=== PATIENT | male | born 1940 | race Caucasian/White ===

== ENCOUNTER 2021-10-25 15:28 | Inpatient (IN) ==
[2021-10-25] MEDS ORDERED: Lactated Ringers 1000 ml BAG 1,000 ML IV ONE (16:36)
[2021-10-25] MEDS ORDERED: NS 0.9% 1000 ml BAG 500 ML IV ONE (16:37)
[2021-10-25 17:34] LABS: Troponin I 0.01 ng/mL (<0.03)
[2021-10-25 17:36] LABS: Albumin 3.7 g/dL (3.2-5.2); Albumin/Globulin Ratio 1.4 (1-3); Calcium 9.4 mg/dL (8.6-10.3); Globulin 2.7 g/dL (2-4); Magnesium 2.2 mg/dL (1.9-2.7); Potassium 4.6 mmol/L (3.5-5.0); Total Bilirubin 0.6 mg/dL (0.2-1.0); Total Protein 6.4 g/dL (6.4-8.9); eGFR CKD-EPI 37.8 (>60)
[2021-10-25 17:44] LABS: ABS Eosinophils 0.1 10^3/ul (0-0.6); ABS Lymphocytes 1.2 10^3/ul (1.0-4.8); ABS Monocytes 0.4 10^3/ul (0-0.8); ABS Neutrophils 4.7 10^3/ul (1.5-7.7); Eosinophil % 1.2 %; Hematocrit 33 % (42-52); Hemoglobin 11.3 g/dL (14.0-18.0); Lymphocyte % 18.2 %; Mean Corpuscular HGB Conc 34 g/dL (31-36); Mean Corpuscular Hemoglobin 32 pg (27-31); Mean Corpuscular Volume 95 fL (80-94); Mean Platelet Volume 9.6 fL (7.4-10.4); Nucleated Red Blood Cells % 0.1; Platelet Count 99 10^3/uL (150-450); Red Blood Count 3.49 10^6 /uL (4.18-5.48); Red Cell Distribution Width 16 % (10-15); White Blood Count 6.3 10^3/uL (3.5-10.8)
[2021-10-25 18:24] LABS: Large Platelets Present
[2021-10-25 18:39] LABS: TSH Ultra Thyroid Stim Horm 22.56 mcIU/mL (0.34-5.60)
[2021-10-25 18:41] LABS: Free T4 0.45 ng/dL (0.61-1.12)
[2021-10-25 18:55] LABS: C Reactive Protein 49.64 mg/L (<8.01)
[2021-10-25 19:19] LABS: Urine Appearance Cloudy; Urine Bilirubin Negative (Negative); Urine Blood 1+ (Negative); Urine Color Yellow; Urine Glucose Negative (Negative); Urine Ketones Negative (Negative); Urine Nitrite Negative (Negative); Urine Protein Negative (Negative); Urine Specific Gravity 1.011 (1.002-1.030); Urine Urobilinogen Negative (Negative)
[2021-10-25 19:22] LABS: Urine Bacteria Absent (Absent); Urine Red Blood Cell 1+(3-5/hpf) (Absent); Urine Squamous Epithelial Cell Present (Absent); Urine White Blood Cell 3+(>20/hpf) (Absent)
[2021-10-25] MEDS ORDERED: cefTRIAXone 1 gm/50 mL NS BAG 1 GM/50 ML BAG IVPB SCH (20:00)
[2021-10-25] MEDS: Enoxaparin 40 MG/0.4 ML SYR SUBCUT SCH (20:14)
[2021-10-25] MEDS ORDERED: Levothyroxine 100 MCG/5 ML VIAL IV ONE (22:00)
[2021-10-25] MEDS ORDERED: ROPINIROLE HYDROCHLORIDE 3 MG PO SCH (22:45)
[2021-10-26] MEDS: Nystatin TOP POWDER 15 GM BTL TOPICAL SCH ×3 (01:14→19:42)
[2021-10-26] MEDS ORDERED: NS 0.9% 500 ml BAG 500 ML IV ONE (06:48)
[2021-10-26] MEDS ORDERED: Lactated Ringers 500 ml BAG 500 ML IV ONE ×2 (09:30→11:37)
[2021-10-26] MEDS ORDERED: Saline NASAL SPRAY 0.65% BTL BOTH NARES PRN (16:56)
[2021-10-26] MEDS: cefTRIAXone 1 gm/50 mL NS BAG 1 GM/50 ML BAG IVPB SCH (19:42)
[2021-10-26] MEDS: Enoxaparin 40 MG/0.4 ML SYR SUBCUT SCH (19:42)
[2021-10-27 06:05] LABS: ABS Eosinophils 0.1 10^3/ul (0-0.6); ABS Lymphocytes 1.3 10^3/ul (1.0-4.8); ABS Monocytes 0.4 10^3/ul (0-0.8); ABS Neutrophils 2.9 10^3/ul (1.5-7.7); Eosinophil % 2.1 %; Hematocrit 33 % (42-52); Hemoglobin 10.8 g/dL (14.0-18.0); Lymphocyte % 27.3 %; Mean Corpuscular HGB Conc 33 g/dL (31-36); Mean Corpuscular Hemoglobin 32 pg (27-31); Mean Corpuscular Volume 97 fL (80-94); Mean Platelet Volume 9.7 fL (7.4-10.4); Nucleated Red Blood Cells % 0.2; Platelet Count 87 10^3/uL (150-450); Red Blood Count 3.38 10^6 /uL (4.18-5.48); Red Cell Distribution Width 16 % (10-15); White Blood Count 4.6 10^3/uL (3.5-10.8)
[2021-10-27 06:27] LABS: Potassium 4.3 mmol/L (3.5-5.0); eGFR CKD-EPI 40.8 (>60)
[2021-10-27 08:47] LABS: C Reactive Protein 38.94 mg/L (<8.01); Magnesium 2.1 mg/dL (1.9-2.7)
[2021-10-27] MEDS: Nystatin TOP POWDER 15 GM BTL TOPICAL SCH ×2 (10:00→20:57)
[2021-10-27] MEDS ORDERED: Cosyntropin 0.25 MG VIAL IV ONE (11:57)
[2021-10-27 12:56] LABS: Ferritin 371.1 ng/mL (24-336)
[2021-10-27 13:00] LABS: Folate 5.55 ng/mL (5.90-24.80)
[2021-10-27] MEDS: Enoxaparin 40 MG/0.4 ML SYR SUBCUT SCH (20:57)
[2021-10-27] MEDS: cefTRIAXone 1 gm/50 mL NS BAG 1 GM/50 ML BAG IVPB SCH (20:57)
[2021-10-28 06:22] LABS: Hematocrit 30 % (42-52); Hemoglobin 10.6 g/dL (14.0-18.0); Mean Corpuscular HGB Conc 35 g/dL (31-36); Mean Corpuscular Hemoglobin 33 pg (27-31); Mean Corpuscular Volume 95 fL (80-94); Mean Platelet Volume 9.4 fL (7.4-10.4); Platelet Count 94 10^3/uL (150-450); Red Cell Distribution Width 16 % (10-15); White Blood Count 5.3 10^3/uL (3.5-10.8)
[2021-10-28 06:30] LABS: Magnesium 2.1 mg/dL (1.9-2.7); Potassium 3.8 mmol/L (3.5-5.0); eGFR CKD-EPI 44.3 (>60)
[2021-10-28] MEDS: Nystatin TOP POWDER 15 GM BTL TOPICAL SCH ×2 (08:42→21:02)
[2021-10-28] MEDS ORDERED: Furosemide 20 mg/2 ml IV VIAL IV SLOW PU ONE (10:30)
[2021-10-28] MEDS: Enoxaparin 40 MG/0.4 ML SYR SUBCUT SCH (21:02)
[2021-10-29 06:53] LABS: Magnesium 2.1 mg/dL (1.9-2.7); Potassium 4.1 mmol/L (3.5-5.0); eGFR CKD-EPI 47.1 (>60)
[2021-10-29] MEDS: Nystatin TOP POWDER 15 GM BTL TOPICAL SCH ×2 (09:19→20:30)
[2021-10-29] MEDS ORDERED: Furosemide 40 mg/4 ml IV VIAL IV ONE (16:58)
[2021-10-29] MEDS: Enoxaparin 40 MG/0.4 ML SYR SUBCUT SCH (20:19)
[2021-10-30 05:36] LABS: Calcium 8.7 mg/dL (8.6-10.3); Magnesium 2.1 mg/dL (1.9-2.7); Potassium 3.9 mmol/L (3.5-5.0); eGFR CKD-EPI 47.9 (>60)
[2021-10-30 08:19] LABS: HDL Cholesterol 31.9 mg/dL
[2021-10-30] MEDS: Nystatin TOP POWDER 15 GM BTL TOPICAL SCH ×2 (08:42→21:51)
[2021-10-30 08:51] LABS: Free T3 2.1 pg/mL (2.5-3.9)
[2021-10-30 09:13] LABS: % Iron Saturation 47 % (14 - 50); Total Iron Binding Capacity 251 mcg/dL (250 - 400)
[2021-10-30 10:48] LABS: Free T4 0.58 ng/dL (0.61-1.12)
[2021-10-30] MEDS: Levothyroxine 100 MCG/5 ML VIAL IV SCH (17:39)
[2021-10-30] MEDS: Enoxaparin 40 MG/0.4 ML SYR SUBCUT SCH (21:50)
[2021-10-31] MEDS ORDERED: Levothyroxine 100 MCG/5 ML VIAL IV SCH (06:00)
[2021-10-31 08:31] LABS: Calcium 8.5 mg/dL (8.6-10.3); eGFR CKD-EPI 58.2 (>60)
[2021-10-31] MEDS: Nystatin TOP POWDER 15 GM BTL TOPICAL SCH ×2 (08:36→20:16)
[2021-10-31 08:50] LABS: Free T4 0.67 ng/dL (0.61-1.12)
[2021-10-31] MEDS ORDERED: Furosemide 20 mg/2 ml IV VIAL IV ONE (08:55)
[2021-10-31] MEDS: Levothyroxine 100 MCG/5 ML VIAL IV SCH (10:34)
[2021-10-31] MEDS ORDERED: COVID-19 VACCINE, MRNA(MODERNA) BOOSTER/PF 50 MCG/0.25 ML IM ONE (18:00)
[2021-10-31] MEDS: Enoxaparin 40 MG/0.4 ML SYR SUBCUT SCH (20:15)
[2021-11-01 06:06] LABS: Calcium 8.5 mg/dL (8.6-10.3); Magnesium 2.1 mg/dL (1.9-2.7); eGFR CKD-EPI 51.2 (>60)
[2021-11-01 06:30] LABS: Free T4 0.84 ng/dL (0.61-1.12)
[2021-11-01] MEDS ORDERED: Furosemide 40 mg/4 ml IV VIAL IV SLOW PU ONE (09:48)
[2021-11-01] MEDS: Nystatin TOP POWDER 15 GM BTL TOPICAL SCH ×2 (09:54→21:06)
[2021-11-01] MEDS: Enoxaparin 40 MG/0.4 ML SYR SUBCUT SCH (21:02)
[2021-11-02 06:22] LABS: Calcium 8.8 mg/dL (8.6-10.3); Magnesium 2.1 mg/dL (1.9-2.7); Potassium 3.7 mmol/L (3.5-5.0); eGFR CKD-EPI 49.5 (>60)
[2021-11-02] MEDS ORDERED: Potassium Chlor 20 meq TAB.ER PO ONE (07:44)
[2021-11-02] MEDS: Nystatin TOP POWDER 15 GM BTL TOPICAL SCH (10:05)
[2021-11-02 11:04] VITALS: BP 128/59
== END 2021-11-02 16:45 | disposition home health service (06) | DRG 644 ==
LOC: ED 15:28 → SUATTDRO 20:36 → EDHOLD 20:36 → MEDTELE 10-26 05:03
PROVIDERS: ADMIT Internal Medicine; ATTEND Student in an Organized Health Care Education/Training Program

== ENCOUNTER 2021-11-21 18:13 | Inpatient (IN) ==
[2021-11-21] MEDS ORDERED: Atropine 0.1 MG/ML 10 ml SYR (1 mg) IV PUSH ONE (18:55)
[2021-11-21 19:10] LABS: ABS Eosinophils 0.1 10^3/ul (0-0.6); ABS Monocytes 0.3 10^3/ul (0-0.8); ABS Neutrophils 3.9 10^3/ul (1.5-7.7); Eosinophil % 1.3 %; Hematocrit 30 % (42-52); Hemoglobin 10.4 g/dL (14.0-18.0); Lymphocyte % 19.3 %; Mean Corpuscular HGB Conc 34 g/dL (31-36); Mean Corpuscular Hemoglobin 33 pg (27-31); Mean Corpuscular Volume 95 fL (80-94); Mean Platelet Volume 9.5 fL (7.4-10.4); Nucleated Red Blood Cells % 0.2; Platelet Count 106 10^3/uL (150-450); Red Blood Count 3.19 10^6 /uL (4.18-5.48); Red Cell Distribution Width 16 % (10-15); White Blood Count 5.3 10^3/uL (3.5-10.8)
[2021-11-21 19:24] LABS: Anion Gap 10 mmol/L (2-11); Blood Urea Nitrogen 49 mg/dL (6-24); CO2 Carbon Dioxide 31 mmol/L (22-32); Calcium 9.3 mg/dL (8.6-10.3); Chloride 101 mmol/L (101-111); Glucose 71 mg/dL (70-100); Potassium 3.7 mmol/L (3.5-5.0); Sodium 142 mmol/L (135-145); eGFR CKD-EPI 30.7 (>60)
[2021-11-21] MEDS ORDERED: Lactated Ringers 1000 ml BAG 1,000 ML IV ONE ×2 (19:34→19:45)
[2021-11-21 19:43] LABS: Troponin I 0.03 ng/mL (<0.03)
[2021-11-21] MEDS ORDERED: Levothyroxine 100 MCG/5 ML VIAL IV SCH (20:00)
[2021-11-21] MEDS ORDERED: Levothyroxine 100 MCG/5 ML VIAL IV ONE ×2 (20:00)
[2021-11-21 20:07] LABS: TSH Ultra Thyroid Stim Horm 0.23 mcIU/mL (0.34-5.60)
[2021-11-21 20:09] LABS: Free T4 1.88 ng/dL (0.61-1.12)
[2021-11-21] MEDS ORDERED: Lactated Ringers 1000 ml BAG IV.FLUID IV ONE (20:58)
[2021-11-21] MEDS ORDERED: Piperacillin/Tazobac ADVAN 3.375 GM in NS 0.9% 100 ml BAG 100 ML IV ONE (20:59)
[2021-11-21] MEDS ORDERED: Vancomycin 1,750 MG in NS 0.9% 250 ml 250 ML IVPB SCH (21:00)
[2021-11-21] MEDS ORDERED: NS 0.9% 500 ml BAG 500 ML ONE (21:16)
[2021-11-21 21:20] LABS: Urine Appearance Clear; Urine Bilirubin Negative (Negative); Urine Blood Negative (Negative); Urine Color Yellow; Urine Glucose Negative (Negative); Urine Ketones Negative (Negative); Urine Nitrite Negative (Negative); Urine Protein Negative (Negative); Urine Specific Gravity 1.009 (1.002-1.030); Urine Urobilinogen Negative (Negative)
[2021-11-21] MEDS ORDERED: Vancomycin 1,750 MG in NS 0.9% 500 ml BAG 500 ML IVPB ONE (22:00)
[2021-11-21] MEDS: Norepinephrine 16MCG/ML BAG NS 4,000 MCG/250 ML BAG IV SCH (22:02)
[2021-11-21] MEDS ORDERED: Atropine 0.1 MG/ML 10 ml SYR (1 mg) ONE (23:41)
[2021-11-21] MEDS ORDERED: Atropine 0.4 MG/ML INJ 0.4 MG/ML VIAL IV PRN (23:41)
[2021-11-22 00:16] LABS: INR 1.3 (0.86-1.15)
[2021-11-22 00:23] LABS: Albumin 3.2 g/dL (3.2-5.2); Albumin/Globulin Ratio 1.3 (1-3); Calcium 8.4 mg/dL (8.6-10.3); Globulin 2.5 g/dL (2-4); Potassium 3.5 mmol/L (3.5-5.0); Total Bilirubin 1.3 mg/dL (0.2-1.0); Total Protein 5.7 g/dL (6.4-8.9); eGFR CKD-EPI 33.3 (>60)
[2021-11-22] MEDS: Norepinephrine 16MCG/ML BAG NS 4,000 MCG/250 ML BAG IV SCH ×4 (05:18→23:46)
[2021-11-22 05:44] LABS: ABS Eosinophils 0.1 10^3/ul (0-0.6); ABS Lymphocytes 1.1 10^3/ul (1.0-4.8); ABS Monocytes 0.6 10^3/ul (0-0.8); ABS Neutrophils 5.1 10^3/ul (1.5-7.7); Eosinophil % 0.8 %; Hematocrit 30 % (42-52); Hemoglobin 10.3 g/dL (14.0-18.0); Mean Corpuscular HGB Conc 34 g/dL (31-36); Mean Corpuscular Hemoglobin 33 pg (27-31); Mean Corpuscular Volume 96 fL (80-94); Mean Platelet Volume 9.7 fL (7.4-10.4); Nucleated Red Blood Cells % 0.1; Platelet Count 92 10^3/uL (150-450); Red Blood Count 3.14 10^6 /uL (4.18-5.48); Red Cell Distribution Width 16 % (10-15); White Blood Count 6.8 10^3/uL (3.5-10.8)
[2021-11-22 05:53] LABS: INR 1.25 (0.86-1.15)
[2021-11-22 06:02] LABS: Albumin 3.3 g/dL (3.2-5.2); Albumin/Globulin Ratio 1.3 (1-3); Calcium 8.8 mg/dL (8.6-10.3); Globulin 2.6 g/dL (2-4); Potassium 3.5 mmol/L (3.5-5.0); Total Bilirubin 1.1 mg/dL (0.2-1.0); Total Protein 5.9 g/dL (6.4-8.9); eGFR CKD-EPI 34.1 (>60)
[2021-11-22] MEDS: Heparin 5000 UNITS/ML 1 mL VIAL SUBCUT SCH ×3 (06:02→22:05)
[2021-11-22] MEDS: Nystatin TOP POWDER 15 GM BTL TOPICAL SCH ×4 (06:03→22:05)
[2021-11-22 06:25] LABS: PCO2 Arterial 51 mmHg (35-45); PO2 Arterial 95 mmHg (80-100)
[2021-11-22] MEDS ORDERED: ZOSYN 3.375 GM x ONE DOSE over 30 miuntes IV (06:30)
[2021-11-22] MEDS ORDERED: Vancomycin per Pharmacy 1 EA NOTE FOLLOW UP PRN (07:02)
[2021-11-22] MEDS: Piperacillin/Tazobac ADVAN 3.375 GM in NS 0.9% 100 ml BAG 100 ML IV SCH ×2 (10:06→18:08)
[2021-11-22] MEDS ORDERED: Vancomycin 1,000 MG in NS 0.9% 250 ml 250 ML IVPB SCH (14:00)
[2021-11-22 15:11] LABS: Urine Benzodiazepine Screen None Detected (None Detect); Urine Cannabinoids Screen None Detected (None Detect); Urine Opiates Screen None Detected (None Detect)
[2021-11-23] MEDS: Piperacillin/Tazobac ADVAN 3.375 GM in NS 0.9% 100 ml BAG 100 ML IV SCH ×3 (01:23→17:36)
[2021-11-23 03:59] LABS: ABS Eosinophils 0.1 10^3/ul (0-0.6); ABS Lymphocytes 1.2 10^3/ul (1.0-4.8); ABS Monocytes 0.5 10^3/ul (0-0.8); Eosinophil % 0.9 %; Hematocrit 31 % (42-52); Hemoglobin 10.4 g/dL (14.0-18.0); Lymphocyte % 17.8 %; Mean Corpuscular HGB Conc 34 g/dL (31-36); Mean Corpuscular Hemoglobin 32 pg (27-31); Mean Corpuscular Volume 96 fL (80-94); Mean Platelet Volume 9.5 fL (7.4-10.4); Nucleated Red Blood Cells % 0.4; Platelet Count 102 10^3/uL (150-450); Red Blood Count 3.22 10^6 /uL (4.18-5.48); Red Cell Distribution Width 16 % (10-15); White Blood Count 6.9 10^3/uL (3.5-10.8)
[2021-11-23 04:14] LABS: C Reactive Protein 81.33 mg/L (<8.01); Calcium 8.7 mg/dL (8.6-10.3); Magnesium 2.2 mg/dL (1.9-2.7); Potassium 3.6 mmol/L (3.5-5.0); eGFR CKD-EPI 29.5 (>60)
[2021-11-23] MEDS: Heparin 5000 UNITS/ML 1 mL VIAL SUBCUT SCH ×3 (05:10→21:00)
[2021-11-23] MEDS: Nystatin TOP POWDER 15 GM BTL TOPICAL SCH ×3 (08:49→21:00)
[2021-11-23 09:32] LABS: TSH Ultra Thyroid Stim Horm 0.16 mcIU/mL (0.34-5.60)
[2021-11-23 09:35] LABS: Free T3 2.9 pg/mL (2.5-3.9)
[2021-11-23] MEDS ORDERED: NS 0.9% 1000 ml BAG 1,000 ML IV SCH (11:30)
[2021-11-23] MEDS ORDERED: Norepinephrine 16MCG/ML BAG NS 4,000 MCG/250 ML BAG IV SCH (12:49)
[2021-11-23] MEDS: Fluticasone NASAL SPRAY 50MCG 16 gm SPRAY BTL BOTH NARES SCH (17:36)
[2021-11-23] MEDS: Hydrocortisone INJ 100 MG/2ML 2 ML VIAL IV SCH (22:38)
[2021-11-23 23:01] LABS: Anaplasma phagocytophilum Negative (Negative); B. miyamotoi PCR, B Negative (Negative); Babesia divergens/MO-1 Negative (Negative); Babesia ducani Negative (Negative); Ehrlichia chaffeensis Negative (Negative); Ehrlichia ewingii/canis Negative (Negative); Ehrlichia muris eauclairensis Negative (Negative)
[2021-11-24] MEDS: Piperacillin/Tazobac ADVAN 3.375 GM in NS 0.9% 100 ml BAG 100 ML IV SCH ×3 (02:01→17:46)
[2021-11-24 04:37] LABS: ABS Lymphocytes 0.8 10^3/ul (1.0-4.8); ABS Monocytes 0.7 10^3/ul (0-0.8); ABS Neutrophils 6.7 10^3/ul (1.5-7.7); Eosinophil % 0.2 %; Hematocrit 29 % (42-52); Hemoglobin 9.9 g/dL (14.0-18.0); Lymphocyte % 9.5 %; Mean Corpuscular HGB Conc 34 g/dL (31-36); Mean Corpuscular Hemoglobin 33 pg (27-31); Mean Corpuscular Volume 96 fL (80-94); Mean Platelet Volume 9.6 fL (7.4-10.4); Nucleated Red Blood Cells % 0.1; Platelet Count 84 10^3/uL (150-450); Red Cell Distribution Width 17 % (10-15); White Blood Count 8.2 10^3/uL (3.5-10.8)
[2021-11-24 04:51] LABS: Calcium 8.6 mg/dL (8.6-10.3); Magnesium 2.2 mg/dL (1.9-2.7); Potassium 3.7 mmol/L (3.5-5.0); eGFR CKD-EPI 26.5 (>60)
[2021-11-24] MEDS ORDERED: Vancomycin Random Level NOTE FOLLOW UP ONE (06:00)
[2021-11-24] MEDS: Hydrocortisone INJ 100 MG/2ML 2 ML VIAL IV SCH ×3 (06:43→21:13)
[2021-11-24] MEDS: Heparin 5000 UNITS/ML 1 mL VIAL SUBCUT SCH ×3 (06:43→21:13)
[2021-11-24] MEDS: Nystatin TOP POWDER 15 GM BTL TOPICAL SCH ×3 (08:46→21:12)
[2021-11-24] MEDS: Fluticasone NASAL SPRAY 50MCG 16 gm SPRAY BTL BOTH NARES SCH (08:46)
[2021-11-24] MEDS ORDERED: Vancomycin Trough Check NOTE FOLLOW UP ONE (13:30)
[2021-11-25 00:29] LABS: Ferritin 604.9 ng/mL (24-336)
[2021-11-25] MEDS: Piperacillin/Tazobac ADVAN 3.375 GM in NS 0.9% 100 ml BAG 100 ML IV SCH ×3 (02:09→17:43)
[2021-11-25 04:40] LABS: ABS Lymphocytes 1.2 10^3/ul (1.0-4.8); ABS Monocytes 0.6 10^3/ul (0-0.8); ABS Neutrophils 6.6 10^3/ul (1.5-7.7); Eosinophil % 0.1 %; Hematocrit 28 % (42-52); Hemoglobin 9.5 g/dL (14.0-18.0); Lymphocyte % 13.9 %; Mean Corpuscular HGB Conc 34 g/dL (31-36); Mean Corpuscular Hemoglobin 33 pg (27-31); Mean Corpuscular Volume 97 fL (80-94); Mean Platelet Volume 9.7 fL (7.4-10.4); Nucleated Red Blood Cells % 0.2; Platelet Count 68 10^3/uL (150-450); Red Blood Count 2.91 10^6 /uL (4.18-5.48); Red Cell Distribution Width 17 % (10-15); White Blood Count 8.4 10^3/uL (3.5-10.8)
[2021-11-25 04:45] LABS: Calcium 8.7 mg/dL (8.6-10.3); Potassium 3.2 mmol/L (3.5-5.0); eGFR CKD-EPI 31.2 (>60)
[2021-11-25] MEDS: Heparin 5000 UNITS/ML 1 mL VIAL SUBCUT SCH ×3 (05:37→22:17)
[2021-11-25] MEDS: Hydrocortisone INJ 100 MG/2ML 2 ML VIAL IV SCH ×3 (05:39→22:14)
[2021-11-25] MEDS ORDERED: KCL 20 MEQ/100 ML IVPREMIX 20 MEQ/100 ML BAG IV ONE (07:32)
[2021-11-25] MEDS: Fluticasone NASAL SPRAY 50MCG 16 gm SPRAY BTL BOTH NARES SCH (07:47)
[2021-11-25] MEDS: Nystatin TOP POWDER 15 GM BTL TOPICAL SCH ×3 (07:47→19:46)
[2021-11-26] MEDS: Atropine 0.1 MG/ML 10 ml SYR (1 mg) IV PRN ×2 (00:50→06:02)
[2021-11-26] MEDS: Piperacillin/Tazobac ADVAN 3.375 GM in NS 0.9% 100 ml BAG 100 ML IV SCH ×3 (02:38→18:02)
[2021-11-26] MEDS: Hydrocortisone INJ 100 MG/2ML 2 ML VIAL IV SCH (05:40)
[2021-11-26] MEDS: Heparin 5000 UNITS/ML 1 mL VIAL SUBCUT SCH ×3 (05:40→21:16)
[2021-11-26 05:50] LABS: ABS Lymphocytes 1.3 10^3/ul (1.0-4.8); ABS Monocytes 0.4 10^3/ul (0-0.8); ABS Neutrophils 5.3 10^3/ul (1.5-7.7); Eosinophil % 0.2 %; Hematocrit 30 % (42-52); Hemoglobin 10.1 g/dL (14.0-18.0); Lymphocyte % 18.1 %; Mean Corpuscular HGB Conc 33 g/dL (31-36); Mean Corpuscular Hemoglobin 32 pg (27-31); Mean Corpuscular Volume 96 fL (80-94); Mean Platelet Volume 10.4 fL (7.4-10.4); Nucleated Red Blood Cells % 0.2; Platelet Count 78 10^3/uL (150-450); Red Blood Count 3.17 10^6 /uL (4.18-5.48); Red Cell Distribution Width 16 % (10-15)
[2021-11-26 05:59] LABS: Calcium 8.8 mg/dL (8.6-10.3); Potassium 3.3 mmol/L (3.5-5.0); eGFR CKD-EPI 33.7 (>60)
[2021-11-26] MEDS ORDERED: Potassium Chlor 20 meq TAB.ER PO ONE ×2 (06:39→07:33)
[2021-11-26] MEDS: KCL 20 MEQ/100 ML IVPREMIX 20 MEQ/100 ML BAG IV SCH ×3 (08:33→13:25)
[2021-11-26] MEDS: Fluticasone NASAL SPRAY 50MCG 16 gm SPRAY BTL BOTH NARES SCH (08:34)
[2021-11-26] MEDS: Pantoprazole VIAL 40 MG VIAL IV SCH (08:34)
[2021-11-26] MEDS: Nystatin TOP POWDER 15 GM BTL TOPICAL SCH ×3 (08:34→22:33)
[2021-11-26 09:02] LABS: Magnesium 2.3 mg/dL (1.9-2.7); Phosphorus 3.6 mg/dL (2.5-5.0)
[2021-11-26] MEDS ORDERED: Atropine 0.1 MG/ML 10 ml SYR (1 mg) IV PRN (16:20)
[2021-11-26 16:25] LABS: GPIIb/IIIa (Cell-1) Negative; GPIIb/IIIa (Cell-2) Negative; GPIV Negative; GPIa/IIa (Cell-1) Negative; GPIa/IIa (Cell-2) Negative; GPIb/IX Negative; Platelet Count x 10(9)/L? 92
[2021-11-27] MEDS: Piperacillin/Tazobac ADVAN 3.375 GM in NS 0.9% 100 ml BAG 100 ML IV SCH ×3 (03:44→17:49)
[2021-11-27 05:15] LABS: ABS Lymphocytes 1.2 10^3/ul (1.0-4.8); ABS Monocytes 0.5 10^3/ul (0-0.8); ABS Neutrophils 5.7 10^3/ul (1.5-7.7); Eosinophil % 0.1 %; Hematocrit 30 % (42-52); Hemoglobin 9.7 g/dL (14.0-18.0); Lymphocyte % 16.7 %; Mean Corpuscular HGB Conc 33 g/dL (31-36); Mean Corpuscular Hemoglobin 32 pg (27-31); Mean Corpuscular Volume 97 fL (80-94); Mean Platelet Volume 10.9 fL (7.4-10.4); Nucleated Red Blood Cells % 0.1; Platelet Count 85 10^3/uL (150-450); Red Blood Count 3.04 10^6 /uL (4.18-5.48); Red Cell Distribution Width 17 % (10-15); White Blood Count 7.5 10^3/uL (3.5-10.8)
[2021-11-27 05:27] LABS: Calcium 8.9 mg/dL (8.6-10.3); Potassium 3.7 mmol/L (3.5-5.0)
[2021-11-27] MEDS: Heparin 5000 UNITS/ML 1 mL VIAL SUBCUT SCH ×3 (06:20→21:09)
[2021-11-27] MEDS: Pantoprazole VIAL 40 MG VIAL IV SCH (09:21)
[2021-11-27] MEDS: Fluticasone NASAL SPRAY 50MCG 16 gm SPRAY BTL BOTH NARES SCH (09:22)
[2021-11-27] MEDS: Nystatin TOP POWDER 15 GM BTL TOPICAL SCH ×3 (09:27→22:45)
[2021-11-27 10:51] LABS: PCO2 Arterial 41 mmHg (35-45); PO2 Arterial 77 mmHg (80-100)
[2021-11-27] MEDS ORDERED: Lidocaine 1% VIAL 10 MG/ML VIAL ONE ×2 (14:09→15:36)
[2021-11-27] MEDS ORDERED: Midazolam 5 mg/5 ml VIAL 1 mg/ml 5 ml VIAL (5 mg) ONE (14:19)
[2021-11-27] MEDS ORDERED: fentaNYL 100 mcg/2 ml 50 MCG/ML VIAL ONE (14:19)
[2021-11-27] MEDS ORDERED: Iohexol 180 (CONTRAST) 10 ML SDV IV ONE (15:13)
[2021-11-27] MEDS ORDERED: Furosemide 40 mg/4 ml IV VIAL IV SLOW PU ONE (17:33)
[2021-11-28] MEDS: Piperacillin/Tazobac ADVAN 3.375 GM in NS 0.9% 100 ml BAG 100 ML IV SCH ×3 (02:03→19:03)
[2021-11-28] MEDS: Heparin 5000 UNITS/ML 1 mL VIAL SUBCUT SCH ×3 (05:39→20:35)
[2021-11-28 06:19] LABS: ABS Eosinophils 0.2 10^3/ul (0-0.6); ABS Lymphocytes 1.6 10^3/ul (1.0-4.8); ABS Monocytes 0.4 10^3/ul (0-0.8); ABS Neutrophils 5.2 10^3/ul (1.5-7.7); Eosinophil % 2.1 %; Hematocrit 32 % (42-52); Hemoglobin 10.8 g/dL (14.0-18.0); Lymphocyte % 21.9 %; Mean Corpuscular HGB Conc 34 g/dL (31-36); Mean Corpuscular Hemoglobin 33 pg (27-31); Mean Corpuscular Volume 97 fL (80-94); Mean Platelet Volume 10.2 fL (7.4-10.4); Platelet Count 105 10^3/uL (150-450); Red Blood Count 3.32 10^6 /uL (4.18-5.48); Red Cell Distribution Width 17 % (10-15); White Blood Count 7.5 10^3/uL (3.5-10.8)
[2021-11-28 06:30] LABS: Calcium 8.7 mg/dL (8.6-10.3); Potassium 3.3 mmol/L (3.5-5.0)
[2021-11-28 06:35] LABS: eGFR CKD-EPI 35.2 (>60)
[2021-11-28] MEDS: Pantoprazole VIAL 40 MG VIAL IV SCH (09:07)
[2021-11-28] MEDS: Nystatin TOP POWDER 15 GM BTL TOPICAL SCH ×3 (11:50→20:35)
[2021-11-28] MEDS: Fluticasone NASAL SPRAY 50MCG 16 gm SPRAY BTL BOTH NARES SCH (11:50)
[2021-11-28] MEDS ORDERED: Potassium Chlor 10 meq TAB PO ONE (18:55)
[2021-11-29] MEDS: Heparin 5000 UNITS/ML 1 mL VIAL SUBCUT SCH (05:30)
[2021-11-29 06:27] LABS: Calcium 8.4 mg/dL (8.6-10.3); Magnesium 2.1 mg/dL (1.9-2.7); Potassium 3.9 mmol/L (3.5-5.0); eGFR CKD-EPI 41.7 (>60)
[2021-11-29] MEDS: Nystatin TOP POWDER 15 GM BTL TOPICAL SCH (09:39)
[2021-11-29] MEDS: Fluticasone NASAL SPRAY 50MCG 16 gm SPRAY BTL BOTH NARES SCH (09:39)
[2021-11-29] MEDS: Pantoprazole VIAL 40 MG VIAL IV SCH (09:39)
[2021-11-29 11:29] VITALS: BP 104/78
[2021-11-29 11:56] LABS: Rapid COVID-19 Molecular Undetected (Undetected)
== END 2021-11-29 12:43 | DRG 853 ==
LOC: ED 18:13 → ICU 23:45 → SUATTDRO 23:45 → MEDTELE 11-27 23:09
PROVIDERS: ADMIT Internal Medicine; ATTEND Internal Medicine

== ENCOUNTER 2022-12-31 20:18 | Inpatient (IN) ==
[2022-12-31] MEDS ORDERED: Cefepime 2 GM in Dextrose 2 GM/50 ML BAG IV ONE (20:31)
[2022-12-31] MEDS ORDERED: Lactated Ringers 1000 ml BAG 1,000 ML IV ONE ×3 (20:33→20:49)
[2022-12-31] MEDS ORDERED: Vancomycin 1,500 MG in NS 0.9% 250 ml 250 ML IVPB SCH (21:00)
[2022-12-31] MEDS ORDERED: Vancomycin 2,000 MG in NS 0.9% 500 ml BAG 500 ML IVPB ONE (21:00)
[2022-12-31 21:09] LABS: Hematocrit 31 % (42-52); Hemoglobin 10.3 g/dL (14.0-18.0); Mean Corpuscular HGB Conc 33 g/dL (31-36); Mean Corpuscular Hemoglobin 32 pg (27-31); Mean Corpuscular Volume 95 fL (80-94); Mean Platelet Volume 9.3 fL (7.4-10.4); Platelet Count 109 10^3/uL (150-450); Red Blood Count 3.24 10^6 /uL (4.18-5.48); Red Cell Distribution Width 17 % (10-15); White Blood Count 13.7 10^3/uL (3.5-10.8)
[2022-12-31 21:14] LABS: Activated Partial Thrombo Time 43.5 seconds (26.0-38.0); INR 1.77 (0.88-1.18)
[2022-12-31 21:34] LABS: Albumin 3.2 g/dL (3.2-5.2); Albumin/Globulin Ratio 1.5 (1-3); C Reactive Protein 67.8 mg/L (<8.01); Calcium 8.4 mg/dL (8.6-10.3); Creatinine, Serum 1.45 mg/dL (0.67-1.17); Globulin 2.1 g/dL (2-4); Potassium 4.5 mmol/L (3.5-5.0); Total Bilirubin 0.9 mg/dL (0.2-1.0); Total Protein 5.3 g/dL (6.4-8.9); eGFR CKD-EPI 48.4 (>60)
[2022-12-31 21:47] LABS: ABS Lymphocytes 0.4 10^3/ul (1.0-4.8); ABS Monocytes 0.5 10^3/ul (0-0.8); ABS Neutrophils 12.7 10^3/ul (1.5-7.7); Eosinophil % 0.1 %; Lymphocyte % 3.1 %
[2022-12-31 22:07] LABS: Urine Appearance Clear; Urine Bilirubin Negative (Negative); Urine Blood Negative (Negative); Urine Color Yellow; Urine Glucose Negative (Negative); Urine Ketones Negative (Negative); Urine Nitrite Negative (Negative); Urine Protein Negative (Negative); Urine Specific Gravity 1.012 (1.002-1.030); Urine Urobilinogen Negative (Negative)
[2022-12-31 23:36] LABS: TSH Ultra Thyroid Stim Horm 0.11 mcIU/mL (0.34-5.60)
[2022-12-31 23:37] LABS: Free T3 2.8 pg/mL (2.5-3.9)
[2022-12-31 23:38] LABS: Free T4 1.39 ng/dL (0.61-1.12)
[2023-01-01] MEDS: Norepinephrine 16MCG/ML BAGD5W 4,000 MCG/250 ML BAG IV SCH ×2 (00:42→11:19)
[2023-01-01 01:14] LABS: High Sensitivity Troponin 1 Hr 6 pg/mL (<20)
[2023-01-01 01:31] LABS: Magnesium 1.8 mg/dL (1.9-2.7); Phosphorus 2.8 mg/dL (2.5-5.0)
[2023-01-01] MEDS ORDERED: Magnesium Sulfate 2 gm BAG 2 GM/50 ML BAG IVPB ONE (01:41)
[2023-01-01] MEDS ORDERED: Heparin DRIP 25,000 UNITS BAG 25,000 UNITS/500 ML BAG IV SCH (02:15)
[2023-01-01] MEDS ORDERED: Heparin 5000 UNITS/ML 1 mL VIAL IV SCH (03:00)
[2023-01-01] MEDS ORDERED: Magnesium Hydroxide LIQ 30 ML UDC PO PRN (04:32)
[2023-01-01] MEDS ORDERED: Vancomycin per Pharmacy 1 EA NOTE FOLLOW UP SCH (05:00)
[2023-01-01 05:40] LABS: ABS Eosinophils 0.1 10^3/ul (0-0.6); ABS Lymphocytes 0.8 10^3/ul (1.0-4.8); ABS Monocytes 0.5 10^3/ul (0-0.8); ABS Neutrophils 13.5 10^3/ul (1.5-7.7); Eosinophil % 0.4 %; Hematocrit 32 % (42-52); Hemoglobin 10.7 g/dL (14.0-18.0); Lymphocyte % 5.2 %; Mean Corpuscular HGB Conc 33 g/dL (31-36); Mean Corpuscular Hemoglobin 32 pg (27-31); Mean Corpuscular Volume 95 fL (80-94); Mean Platelet Volume 9.4 fL (7.4-10.4); Platelet Count 104 10^3/uL (150-450); Red Blood Count 3.39 10^6 /uL (4.18-5.48); Red Cell Distribution Width 17 % (10-15); White Blood Count 14.8 10^3/uL (3.5-10.8)
[2023-01-01] MEDS ORDERED: Cefepime ADVAN 1 GM in NS 0.9% 50 ML 50 ML IVPB SCH (08:00)
[2023-01-01 08:09] LABS: ALT 54 U/L (7-52); AST 56 U/L (13-39); Albumin 3.2 g/dL (3.2-5.2); Albumin/Globulin Ratio 1.4 (1-3); Alkaline Phosphatase 278 U/L (35-149); Anion Gap 9 mmol/L (2-11); Blood Urea Nitrogen 34 mg/dL (6-24); CO2 Carbon Dioxide 28 mmol/L (22-32); Calcium 8.5 mg/dL (8.6-10.3); Chloride 107 mmol/L (101-111); Creatinine, Serum 1.49 mg/dL (0.67-1.17); Globulin 2.3 g/dL (2-4); Glucose 100 mg/dL (70-100); Phosphorus 3.1 mg/dL (2.5-5.0); Potassium 4.6 mmol/L (3.5-5.0); Sodium 144 mmol/L (135-145); Total Protein 5.5 g/dL (6.4-8.9); eGFR CKD-EPI 46.9 (>60)
[2023-01-01] MEDS ORDERED: Fluticasone NASAL SPRAY 50MCG 16 gm SPRAY BTL INTRANASAL SCH (09:00)
[2023-01-01] MEDS: Nystatin TOP POWDER 15 GM BTL TOPICAL SCH ×2 (09:44→20:23)
[2023-01-01] MEDS: Cefepime 1 GM in Dextrose 1 GM/50 ML BAG IV SCH ×2 (09:44→20:22)
[2023-01-01 11:56] LABS: Magnesium 2.1 mg/dL (1.9-2.7); Potassium 4.5 mmol/L (3.5-5.0)
[2023-01-01] MEDS ORDERED: Vancomycin 1,500 MG in NS 0.9% 250 ml 250 ML IVPB SCH (15:00)
[2023-01-01] MEDS: Fluticasone NASAL SPRAY 50MCG 16 gm SPRAY BTL INTRANASAL SCH (20:23)
[2023-01-02 04:21] LABS: ABS Eosinophils 0.1 10^3/ul (0-0.6); ABS Lymphocytes 1.1 10^3/ul (1.0-4.8); ABS Monocytes 0.5 10^3/ul (0-0.8); ABS Neutrophils 5.9 10^3/ul (1.5-7.7); Hematocrit 28 % (42-52); Hemoglobin 9.4 g/dL (14.0-18.0); Mean Corpuscular HGB Conc 33 g/dL (31-36); Mean Corpuscular Hemoglobin 32 pg (27-31); Mean Corpuscular Volume 95 fL (80-94); Mean Platelet Volume 9.5 fL (7.4-10.4); Platelet Count 103 10^3/uL (150-450); Red Blood Count 2.97 10^6 /uL (4.18-5.48); Red Cell Distribution Width 18 % (10-15); White Blood Count 7.6 10^3/uL (3.5-10.8)
[2023-01-02 05:09] LABS: Albumin 2.8 g/dL (3.2-5.2); Magnesium 2.2 mg/dL (1.9-2.7)
[2023-01-02 05:13] LABS: Calcium 8.1 mg/dL (8.6-10.3); Potassium 4.7 mmol/L (3.5-5.0)
[2023-01-02 05:15] LABS: Albumin/Globulin Ratio 1.5 (1-3); Globulin 1.9 g/dL (2-4); Phosphorus 3.3 mg/dL (2.5-5.0); Total Protein 4.7 g/dL (6.4-8.9)
[2023-01-02 05:30] LABS: Creatinine, Serum 2.04 mg/dL (0.67-1.17); eGFR CKD-EPI 32.1 (>60)
[2023-01-02] MEDS: Linezolid 600 MG IVPREMIX(*) 600 MG/300 ML BAG IVPB SCH ×2 (10:42→21:58)
[2023-01-02] MEDS: Nystatin TOP POWDER 15 GM BTL TOPICAL SCH ×2 (10:42→21:56)
[2023-01-02] MEDS: Cefepime 1 GM in Dextrose 1 GM/50 ML BAG IV SCH (11:24)
[2023-01-02] MEDS: Fluticasone NASAL SPRAY 50MCG 16 gm SPRAY BTL INTRANASAL SCH (21:56)
[2023-01-03 07:53] LABS: ABS Eosinophils 0.2 10^3/ul (0-0.6); ABS Lymphocytes 1.3 10^3/ul (1.0-4.8); ABS Monocytes 0.4 10^3/ul (0-0.8); ABS Neutrophils 3.9 10^3/ul (1.5-7.7); Eosinophil % 3.6 %; Hematocrit 31 % (42-52); Hemoglobin 10.4 g/dL (14.0-18.0); Lymphocyte % 21.5 %; Mean Corpuscular HGB Conc 33 g/dL (31-36); Mean Corpuscular Hemoglobin 32 pg (27-31); Mean Corpuscular Volume 95 fL (80-94); Mean Platelet Volume 9.2 fL (7.4-10.4); Nucleated Red Blood Cells % 0.1; Platelet Count 118 10^3/uL (150-450); Red Blood Count 3.28 10^6 /uL (4.18-5.48); Red Cell Distribution Width 18 % (10-15); White Blood Count 5.8 10^3/uL (3.5-10.8)
[2023-01-03 08:41] LABS: Albumin 3.1 g/dL (3.2-5.2); Albumin/Globulin Ratio 1.3 (1-3); Calcium 8.7 mg/dL (8.6-10.3); Creatinine, Serum 1.86 mg/dL (0.67-1.17); Globulin 2.4 g/dL (2-4); Magnesium 2.3 mg/dL (1.9-2.7); Phosphorus 3.4 mg/dL (2.5-5.0); Potassium 4.5 mmol/L (3.5-5.0); Total Protein 5.5 g/dL (6.4-8.9); eGFR CKD-EPI 35.9 (>60)
[2023-01-03] MEDS: Linezolid 600 MG IVPREMIX(*) 600 MG/300 ML BAG IVPB SCH ×2 (10:25→21:01)
[2023-01-03] MEDS: Nystatin TOP POWDER 15 GM BTL TOPICAL SCH ×2 (11:25→20:54)
[2023-01-03] MEDS ORDERED: Vancomycin Trough Check NOTE FOLLOW UP ONE (14:30)
[2023-01-03] MEDS: Fluticasone NASAL SPRAY 50MCG 16 gm SPRAY BTL INTRANASAL SCH (20:53)
[2023-01-04 06:54] LABS: ABS Eosinophils 0.2 10^3/ul (0-0.6); ABS Lymphocytes 1.4 10^3/ul (1.0-4.8); ABS Monocytes 0.5 10^3/ul (0-0.8); ABS Neutrophils 3.6 10^3/ul (1.5-7.7); Eosinophil % 3.8 %; Hematocrit 31 % (42-52); Hemoglobin 10.2 g/dL (14.0-18.0); Mean Corpuscular HGB Conc 33 g/dL (31-36); Mean Corpuscular Hemoglobin 32 pg (27-31); Mean Corpuscular Volume 96 fL (80-94); Nucleated Red Blood Cells % 0.1; Platelet Count 120 10^3/uL (150-450); Red Blood Count 3.21 10^6 /uL (4.18-5.48); Red Cell Distribution Width 17 % (10-15); White Blood Count 5.8 10^3/uL (3.5-10.8)
[2023-01-04 07:28] LABS: Albumin 3.1 g/dL (3.2-5.2); Albumin/Globulin Ratio 1.4 (1-3); Calcium 8.6 mg/dL (8.6-10.3); Creatinine, Serum 1.57 mg/dL (0.67-1.17); Globulin 2.2 g/dL (2-4); Magnesium 2.3 mg/dL (1.9-2.7); Potassium 4.3 mmol/L (3.5-5.0); Total Bilirubin 0.8 mg/dL (0.2-1.0); Total Protein 5.3 g/dL (6.4-8.9)
[2023-01-04] MEDS: Nystatin TOP POWDER 15 GM BTL TOPICAL SCH (09:09)
[2023-01-04] MEDS: Linezolid 600 MG IVPREMIX(*) 600 MG/300 ML BAG IVPB SCH (09:09)
[2023-01-04 12:12] VITALS: BP 143/73
[2023-01-04] MEDS ORDERED: Ondansetron 4 mg VIAL 2 MG/ML 2 ml VIAL ONE (13:09)
== END 2023-01-04 13:50 | disposition home or self-care (01) | DRG 871 ==
LOC: ED 20:18 → EDHOLD 22:38 → ICU 01-01 01:33 → SSU 01-02 15:40
PROVIDERS: ADMIT Surgery Surgical Critical Care; ATTEND Surgery Surgical Critical Care

== ENCOUNTER 2023-04-05 19:52 | Inpatient (IN) ==
[2023-04-05] MEDS ORDERED: Lactated Ringers 1000 ml BAG 1,000 ML IV ONE (20:12)
[2023-04-05] MEDS ORDERED: Lactated Ringers SEPSIS* BAG 2,120 ML IV ONE (20:18)
[2023-04-05 20:37] LABS: ABS Eosinophils 0.1 10^3/uL (0.0-0.5); ABS Monocytes 0.2 10^3/uL (0.0-1.1); ABS Neutrophils 2.8 10^3/uL (1.5-7.6); ABS Nucleated RBC 0.01 10^3/ul; Eosinophil % 3.1 %; Hematocrit 25.6 % (38-53); Hemoglobin 8.7 g/dL (13.2-16.3); Lymphocyte % 23.8 %; Mean Corpuscular Hemoglobin 32.1 pg (27-33); Mean Corpuscular Hgb Conc 33.8 g/dL (31-36); Mean Corpuscular Volume 94.8 fL (80-97); Mean Platelet Volume 8.9 fL (7.5-11.2); Nucleated Red Blood Cells % 0.2 /100 WBC (0.0-0.4); Platelet Count 135 10^3/uL (150-450); Red Cell Distribution Width 16.7 % (12-17)
[2023-04-05 20:45] LABS: Activated Partial Thrombo Time 44.5 seconds (26.0-38.0); INR 2.1 (0.88-1.18)
[2023-04-05 20:58] LABS: ALT 22 U/L (7-52); AST 15 U/L (13-39); Albumin/Globulin Ratio 1.2 (1-3); Alkaline Phosphatase 142 U/L (35-149); Anion Gap 8 mmol/L (2-16); Blood Urea Nitrogen 34 mg/dL (6-24); C Reactive Protein 143.31 mg/L (<8.01); CO2 Carbon Dioxide 25 mmol/L (22-32); Calcium 8.5 mg/dL (8.6-10.3); Chloride 104 mmol/L (101-111); Creatinine, Serum 1.38 mg/dL (0.67-1.17); Globulin 2.5 g/dL (2-4); Glucose 91 mg/dL (70-100); Sodium 137 mmol/L (135-145); Total Protein 5.5 g/dL (6.4-8.9); eGFR CKD-EPI 51.4 (>60)
[2023-04-05 21:04] LABS: High Sens Troponin Baseline 4 pg/mL (<20)
[2023-04-05 21:13] LABS: Alcohol, S < 13 mg/dL (<13)
[2023-04-05] MEDS ORDERED: cefTRIAXone 2 gm/50 mL D5W 2 GM/50 ML BAG IV ONE (21:53)
[2023-04-05] MEDS ORDERED: Norepinephrine 16MCG/ML BAGD5W 4,000 MCG/250 ML BAG IV SCH (22:00)
[2023-04-05] MEDS ORDERED: Norepinephrine 16MCG/ML BAGD5W 4,000 MCG/250 ML BAG IV ONE ×2 (22:02→22:03)
[2023-04-05 22:18] LABS: High Sensitivity Troponin 1 Hr 5 pg/mL (<20)
[2023-04-05 23:17] LABS: Urine Appearance Clear; Urine Bilirubin Negative (Negative); Urine Blood Negative (Negative); Urine Color Yellow; Urine Glucose Negative (Negative); Urine Ketones Negative (Negative); Urine Nitrite Negative (Negative); Urine Protein Negative (Negative); Urine Specific Gravity 1.008 (1.002-1.030); Urine Urobilinogen Negative (Negative)
[2023-04-05] MEDS ORDERED: Ondansetron 4 mg VIAL 2 MG/ML 2 ml VIAL IV PRN (23:20)
[2023-04-05] MEDS ORDERED: Vancomycin 1,000 MG in NS 0.9% 250 ml 250 ML IVPB ONE (23:21)
[2023-04-05] MEDS ORDERED: Vancomycin per Pharmacy 1 EA NOTE FOLLOW UP SCH (23:45)
[2023-04-06] MEDS ORDERED: Vancomycin 1,750 MG in NS 0.9% 500 ml BAG 500 ML IVPB ONE (01:00)
[2023-04-06] MEDS: Lactated Ringers 1000 ml BAG 1,000 ML IV SCH ×2 (01:44→16:31)
[2023-04-06] MEDS ORDERED: Zinc Oxide 16% PASTE (Butt Paste) 30 gm TUBE TOPICAL SCH (03:00)
[2023-04-06 04:48] LABS: ABS Eosinophils 0.1 10^3/uL (0.0-0.5); ABS Lymphocytes 1.1 10^3/uL (1.0-4.8); ABS Monocytes 0.1 10^3/uL (0.0-1.1); ABS Nucleated RBC 0.01 10^3/ul; Eosinophil % 2.1 %; Hematocrit 26.1 % (38-53); Hemoglobin 8.8 g/dL (13.2-16.3); Lymphocyte % 25.6 %; Mean Corpuscular Hemoglobin 31.4 pg (27-33); Mean Corpuscular Hgb Conc 33.9 g/dL (31-36); Mean Corpuscular Volume 92.8 fL (80-97); Mean Platelet Volume 9.1 fL (7.5-11.2); Nucleated Red Blood Cells % 0.1 /100 WBC (0.0-0.4); Platelet Count 126 10^3/uL (150-450); Red Blood Count 2.81 10^6/uL (4.06-5.63); Red Cell Distribution Width 16.7 % (12-17); White Blood Count 4.3 10^3/uL (3.6-10.2)
[2023-04-06 05:11] LABS: Calcium 8.5 mg/dL (8.6-10.3); Creatinine, Serum 1.42 mg/dL (0.67-1.17); Magnesium 1.9 mg/dL (1.9-2.7); Potassium 4.3 mmol/L (3.5-5.0); eGFR CKD-EPI 49.6 (>60)
[2023-04-06] MEDS ORDERED: Hydrocortisone INJ 100 MG/2ML 2 ML VIAL IV SCH (08:00)
[2023-04-06 08:29] LABS: Body Fluid Source Synovial Fluid
[2023-04-06 08:30] LABS: Body Fluid Appearance Cloudy; Body Fluid Color Yellow
[2023-04-06 08:50] LABS: Body Fluid WBC 83 /mcL
[2023-04-06] MEDS: Hydrocortisone INJ 100 MG VIAL IV SCH ×2 (09:16→16:31)
[2023-04-06] MEDS: GENTIAN VIOLET TOPICAL SCH ×2 (09:16→11:15)
[2023-04-06] MEDS: Zinc Oxide 16% PASTE (Butt Paste) 30 gm TUBE TOPICAL SCH ×2 (09:17→11:15)
[2023-04-06] MEDS: Nystatin TOP POWDER 15 GM BTL TOPICAL SCH ×2 (09:17→21:50)
[2023-04-06 09:28] LABS: Body Fluid Mono 36 %; Body Fluid Other Cells 1; Body Fluid Total Cells Counted 45
[2023-04-06] MEDS ORDERED: Magnesium Sulfate 2 gm BAG 2 GM/50 ML BAG IVPB ONE (12:22)
[2023-04-06] MEDS: cefTRIAXone 2 gm/50 mL D5W 2 GM/50 ML BAG IV SCH (21:44)
[2023-04-06] MEDS: Vancomycin 1,500 MG in NS 0.9% 250 ml 250 ML IVPB SCH (23:04)
[2023-04-07] MEDS: Hydrocortisone INJ 100 MG VIAL IV SCH (01:47)
[2023-04-07 09:07] LABS: ABS Lymphocytes 0.6 10^3/uL (1.0-4.8); ABS Monocytes 0.4 10^3/uL (0.0-1.1); ABS Neutrophils 5.5 10^3/uL (1.5-7.6); ABS Nucleated RBC 0.01 10^3/ul; Eosinophil % 0.2 %; Hematocrit 26.2 % (38-53); Hemoglobin 8.7 g/dL (13.2-16.3); Lymphocyte % 9.3 %; Mean Corpuscular Hemoglobin 31.6 pg (27-33); Mean Corpuscular Hgb Conc 33.3 g/dL (31-36); Mean Corpuscular Volume 94.8 fL (80-97); Mean Platelet Volume 10.1 fL (7.5-11.2); Nucleated Red Blood Cells % 0.1 /100 WBC (0.0-0.4); Platelet Count 123 10^3/uL (150-450); Red Blood Count 2.77 10^6/uL (4.06-5.63); Red Cell Distribution Width 17.2 % (12-17); White Blood Count 6.5 10^3/uL (3.6-10.2)
[2023-04-07 09:25] LABS: Calcium 8.6 mg/dL (8.6-10.3); Creatinine, Serum 1.43 mg/dL (0.67-1.17); Magnesium 2.3 mg/dL (1.9-2.7); Potassium 3.9 mmol/L (3.5-5.0); eGFR CKD-EPI 49.2 (>60)
[2023-04-07] MEDS: Nystatin TOP POWDER 15 GM BTL TOPICAL SCH ×2 (10:21→22:22)
[2023-04-07] MEDS: cefTRIAXone 2 gm/50 mL D5W 2 GM/50 ML BAG IV SCH (21:23)
[2023-04-07] MEDS: Vancomycin 1,500 MG in NS 0.9% 250 ml 250 ML IVPB SCH (22:15)
[2023-04-08] MEDS: GENTIAN VIOLET TOPICAL SCH (08:29)
[2023-04-08] MEDS: Zinc Oxide 16% PASTE (Butt Paste) 30 gm TUBE TOPICAL SCH (08:30)
[2023-04-08] MEDS: Nystatin TOP POWDER 15 GM BTL TOPICAL SCH ×3 (08:39→21:06)
[2023-04-08] MEDS: cefTRIAXone 2 gm/50 mL D5W 2 GM/50 ML BAG IV SCH (21:13)
[2023-04-08] MEDS ORDERED: Vancomycin Trough Check NOTE FOLLOW UP ONE (21:30)
[2023-04-08 22:02] LABS: Creatinine, Serum 1.41 mg/dL (0.67-1.17); eGFR CKD-EPI 50.1 (>60)
[2023-04-09 06:46] LABS: ABS Eosinophils 0.2 10^3/uL (0.0-0.5); ABS Monocytes 0.6 10^3/uL (0.0-1.1); ABS Neutrophils 3.4 10^3/uL (1.5-7.6); ABS Nucleated RBC 0.01 10^3/ul; Eosinophil % 3.9 %; Hematocrit 25.3 % (38-53); Hemoglobin 8.5 g/dL (13.2-16.3); Lymphocyte % 18.7 %; Mean Corpuscular Hemoglobin 31.5 pg (27-33); Mean Corpuscular Hgb Conc 33.7 g/dL (31-36); Mean Corpuscular Volume 93.5 fL (80-97); Mean Platelet Volume 9.5 fL (7.5-11.2); Nucleated Red Blood Cells % 0.3 /100 WBC (0.0-0.4); Platelet Count 146 10^3/uL (150-450); Red Blood Count 2.71 10^6/uL (4.06-5.63); Red Cell Distribution Width 16.9 % (12-17); White Blood Count 5.2 10^3/uL (3.6-10.2)
[2023-04-09 07:06] LABS: Calcium 8.3 mg/dL (8.6-10.3); Creatinine, Serum 1.4 mg/dL (0.67-1.17); Potassium 3.8 mmol/L (3.5-5.0); eGFR CKD-EPI 50.5 (>60)
[2023-04-09] MEDS: Nystatin TOP POWDER 15 GM BTL TOPICAL SCH ×2 (09:01→22:16)
[2023-04-09] MEDS ORDERED: Furosemide 40 mg/4 ml IV VIAL IV SLOW PU ONE ×2 (10:59→21:00)
[2023-04-09] MEDS: Nystatin SUSPENSION 100,000 UNITS/ML UDC PO SCH ×3 (13:37→22:16)
[2023-04-09] MEDS: cefTRIAXone 2 gm/50 mL D5W 2 GM/50 ML BAG IV SCH (22:17)
[2023-04-10 06:25] LABS: ABS Eosinophils 0.2 10^3/uL (0.0-0.5); ABS Lymphocytes 0.9 10^3/uL (1.0-4.8); ABS Monocytes 0.6 10^3/uL (0.0-1.1); ABS Neutrophils 2.5 10^3/uL (1.5-7.6); ABS Nucleated RBC 0.02 10^3/ul; Eosinophil % 3.7 %; Hematocrit 26.1 % (38-53); Hemoglobin 8.8 g/dL (13.2-16.3); Lymphocyte % 21.1 %; Mean Corpuscular Hemoglobin 31.2 pg (27-33); Mean Corpuscular Hgb Conc 33.7 g/dL (31-36); Mean Corpuscular Volume 92.8 fL (80-97); Mean Platelet Volume 9.6 fL (7.5-11.2); Nucleated Red Blood Cells % 0.5 /100 WBC (0.0-0.4); Platelet Count 136 10^3/uL (150-450); Red Blood Count 2.81 10^6/uL (4.06-5.63); Red Cell Distribution Width 16.8 % (12-17); White Blood Count 4.2 10^3/uL (3.6-10.2)
[2023-04-10] MEDS ORDERED: NS 0.9% 1000 ml BAG 1,000 ML IV ONE (07:00)
[2023-04-10 07:02] LABS: Calcium 8.2 mg/dL (8.6-10.3); Creatinine, Serum 1.41 mg/dL (0.67-1.17); Potassium 3.7 mmol/L (3.5-5.0); eGFR CKD-EPI 50.1 (>60)
[2023-04-10] MEDS: Nystatin SUSPENSION 100,000 UNITS/ML UDC PO SCH ×4 (09:23→21:43)
[2023-04-10] MEDS: Nystatin TOP POWDER 15 GM BTL TOPICAL SCH ×2 (09:26→21:44)
[2023-04-10] MEDS: GENTIAN VIOLET TOPICAL SCH (11:40)
[2023-04-10] MEDS: Zinc Oxide 16% PASTE (Butt Paste) 30 gm TUBE TOPICAL SCH (11:40)
[2023-04-10] MEDS ORDERED: Midazolam 10 mg/10 ml VIAL 1 mg/ml 10 ml VIAL (10 mg) IV SLOW PU ONE (14:11)
[2023-04-10] MEDS ORDERED: fentaNYL 100 mcg/2 ml 50 MCG/ML VIAL IV SLOW PU ONE (14:11)
[2023-04-10] MEDS ORDERED: Flumazenil 0.5 mg/5 ml 0.1 MG/ML 5 ml VIAL ONE (14:21)
[2023-04-10] MEDS ORDERED: fentaNYL 100 mcg/2 ml 50 MCG/ML VIAL ONE (14:21)
[2023-04-10] MEDS ORDERED: Naloxone 0.4 mg VIAL 0.4 mg/ml 1 ml VIAL ONE (14:21)
[2023-04-10] MEDS ORDERED: Midazolam 5 mg/5 ml VIAL 1 mg/ml 5 ml VIAL (5 mg) ONE (14:21)
[2023-04-10] MEDS: cefTRIAXone 2 gm/50 mL D5W 2 GM/50 ML BAG IV SCH (21:44)
[2023-04-11] MEDS: Nystatin SUSPENSION 100,000 UNITS/ML UDC PO SCH ×4 (09:24→21:30)
[2023-04-11] MEDS: Nystatin TOP POWDER 15 GM BTL TOPICAL SCH ×2 (09:24→21:30)
[2023-04-11 10:38] LABS: C Reactive Protein 74.47 mg/L (<8.01)
[2023-04-12 06:23] LABS: ABS Eosinophils 0.1 10^3/uL (0.0-0.5); ABS Monocytes 0.4 10^3/uL (0.0-1.1); ABS Neutrophils 2.7 10^3/uL (1.5-7.6); ABS Nucleated RBC 0.01 10^3/ul; Eosinophil % 2.5 %; Hematocrit 25.9 % (38-53); Hemoglobin 8.8 g/dL (13.2-16.3); Lymphocyte % 22.4 %; Mean Corpuscular Hemoglobin 31.3 pg (27-33); Mean Platelet Volume 9.4 fL (7.5-11.2); Nucleated Red Blood Cells % 0.3 /100 WBC (0.0-0.4); Platelet Count 117 10^3/uL (150-450); Red Blood Count 2.82 10^6/uL (4.06-5.63); Red Cell Distribution Width 16.7 % (12-17); White Blood Count 4.3 10^3/uL (3.6-10.2)
[2023-04-12 06:41] LABS: Calcium 8.2 mg/dL (8.6-10.3); Creatinine, Serum 1.55 mg/dL (0.67-1.17); Potassium 3.8 mmol/L (3.5-5.0); eGFR CKD-EPI 44.7 (>60)
[2023-04-12] MEDS: Nystatin TOP POWDER 15 GM BTL TOPICAL SCH ×2 (09:53→20:21)
[2023-04-12] MEDS: Zinc Oxide 16% PASTE (Butt Paste) 30 gm TUBE TOPICAL SCH (09:54)
[2023-04-12] MEDS: Nystatin SUSPENSION 100,000 UNITS/ML UDC PO SCH ×4 (09:54→20:20)
[2023-04-12] MEDS: GENTIAN VIOLET TOPICAL SCH (09:54)
[2023-04-12] MEDS ORDERED: Magnesium Hydroxide LIQ 30 ML UDC PO PRN (14:25)
[2023-04-12] MEDS ORDERED: Senna TAB 8.6 mg TAB PO PRN (14:25)
[2023-04-12] MEDS ORDERED: Polyethylene Glycol 3350 17 GM PACKET PO PRN (14:25)
[2023-04-12] MEDS: Magnesium Hydroxide LIQ 30 ML UDC PO SCH (20:20)
[2023-04-13 06:22] LABS: Calcium 8.3 mg/dL (8.6-10.3); Creatinine, Serum 1.63 mg/dL (0.67-1.17); Potassium 3.9 mmol/L (3.5-5.0); eGFR CKD-EPI 42.1 (>60)
[2023-04-13] MEDS: Magnesium Hydroxide LIQ 30 ML UDC PO SCH ×2 (09:09→22:11)
[2023-04-13] MEDS: Nystatin SUSPENSION 100,000 UNITS/ML UDC PO SCH ×4 (09:09→21:07)
[2023-04-13] MEDS: Nystatin TOP POWDER 15 GM BTL TOPICAL SCH ×2 (11:14→23:09)
[2023-04-14 06:26] LABS: ABS Eosinophils 0.1 10^3/uL (0.0-0.5); ABS Lymphocytes 1.6 10^3/uL (1.0-4.8); ABS Monocytes 0.4 10^3/uL (0.0-1.1); ABS Neutrophils 2.8 10^3/uL (1.5-7.6); ABS Nucleated RBC 0.04 10^3/ul; Eosinophil % 1.8 %; Hematocrit 26.3 % (38-53); Lymphocyte % 31.5 %; Mean Corpuscular Hemoglobin 31.8 pg (27-33); Mean Corpuscular Hgb Conc 34.1 g/dL (31-36); Mean Corpuscular Volume 93.3 fL (80-97); Mean Platelet Volume 9.6 fL (7.5-11.2); Nucleated Red Blood Cells % 0.7 /100 WBC (0.0-0.4); Platelet Count 128 10^3/uL (150-450); Red Blood Count 2.82 10^6/uL (4.06-5.63); Red Cell Distribution Width 16.6 % (12-17); White Blood Count 4.9 10^3/uL (3.6-10.2)
[2023-04-14 06:41] LABS: C Reactive Protein 26.3 mg/L (<8.01); Calcium 8.2 mg/dL (8.6-10.3); Creatinine, Serum 1.65 mg/dL (0.67-1.17); eGFR CKD-EPI 41.5 (>60)
[2023-04-14] MEDS: Nystatin SUSPENSION 100,000 UNITS/ML UDC PO SCH (09:21)
[2023-04-14] MEDS: Nystatin TOP POWDER 15 GM BTL TOPICAL SCH ×2 (09:21→23:13)
[2023-04-14] MEDS: GENTIAN VIOLET TOPICAL SCH (15:22)
[2023-04-14] MEDS: Zinc Oxide 16% PASTE (Butt Paste) 30 gm TUBE TOPICAL SCH (15:23)
[2023-04-15 07:10] LABS: Calcium 8.4 mg/dL (8.6-10.3); Creatinine, Serum 1.8 mg/dL (0.67-1.17); Potassium 4.1 mmol/L (3.5-5.0); eGFR CKD-EPI 37.3 (>60)
[2023-04-15] MEDS: Nystatin TOP POWDER 15 GM BTL TOPICAL SCH ×2 (10:35→22:29)
[2023-04-15] MEDS ORDERED: NS 0.9% 500 ml BAG 500 ML IV ONE (11:31)
[2023-04-16] MEDS: Zinc Oxide 16% PASTE (Butt Paste) 30 gm TUBE TOPICAL SCH ×2 (05:49→08:12)
[2023-04-16] MEDS: GENTIAN VIOLET TOPICAL SCH ×2 (05:49→08:11)
[2023-04-16 06:32] LABS: Calcium 8.4 mg/dL (8.6-10.3)
[2023-04-16 06:37] LABS: Creatinine, Serum 1.78 mg/dL (0.67-1.17); eGFR CKD-EPI 37.9 (>60)
[2023-04-16] MEDS: Nystatin TOP POWDER 15 GM BTL TOPICAL SCH ×2 (08:22→22:41)
[2023-04-17 06:11] LABS: Calcium 8.5 mg/dL (8.6-10.3); Creatinine, Serum 1.52 mg/dL (0.67-1.17); Potassium 3.9 mmol/L (3.5-5.0); eGFR CKD-EPI 45.7 (>60)
[2023-04-17] MEDS: Nystatin TOP POWDER 15 GM BTL TOPICAL SCH ×2 (11:16→21:33)
[2023-04-17] MEDS ORDERED: Furosemide 40 mg/4 ml IV VIAL IV SLOW PU ONE (15:39)
[2023-04-18] MEDS: GENTIAN VIOLET TOPICAL SCH ×2 (06:16→09:14)
[2023-04-18 06:58] LABS: Calcium 8.5 mg/dL (8.6-10.3); Creatinine, Serum 1.49 mg/dL (0.67-1.17); eGFR CKD-EPI 46.9 (>60)
[2023-04-18 07:28] LABS: TSH Ultra Thyroid Stim Horm 0.28 mcIU/mL (0.34-5.60)
[2023-04-18 07:30] LABS: Free T4 1.18 ng/dL (0.61-1.12)
[2023-04-18] MEDS: Zinc Oxide 16% PASTE (Butt Paste) 30 gm TUBE TOPICAL SCH (09:15)
[2023-04-18] MEDS: Nystatin TOP POWDER 15 GM BTL TOPICAL SCH (09:15)
[2023-04-18 09:38] VITALS: BP 127/74
== END 2023-04-18 14:10 | DRG 871 ==
LOC: ED 19:52 → EDHOLD 23:14 → SUATTDRO 23:14 → ICU 04-06 01:00 → MED 04-07 07:59
PROVIDERS: ADMIT Student in an Organized Health Care Education/Training Program; ATTEND Hospitalist

== ENCOUNTER 2023-07-01 19:49 | Inpatient (IN) ==
[2023-07-01] MEDS ORDERED: Vancomycin 1,500 MG in NS 0.9% 250 ml 250 ML IVPB ONE (20:43)
[2023-07-01] MEDS ORDERED: Piperacillin/Tazobac 3.375 BAG 3.375 GM/100 ML BAG IV ONE (20:43)
[2023-07-01] MEDS: Lactated Ringers 1000 ml BAG 1,000 ML IV ONE ×2 (21:25→22:05)
[2023-07-01 21:29] LABS: ABS Eosinophils 0.1 10^3/uL (0.0-0.5); ABS Lymphocytes 2.3 10^3/uL (1.0-4.8); ABS Monocytes 0.5 10^3/uL (0.0-1.1); ABS Neutrophils 4.9 10^3/uL (1.5-7.6); ABS Nucleated RBC 0.01 10^3/ul; Eosinophil % 1.7 %; Hematocrit 26.4 % (38-53); Hemoglobin 8.9 g/dL (13.2-16.3); Lymphocyte % 29.7 %; Mean Corpuscular Hemoglobin 29.7 pg (27-33); Mean Corpuscular Hgb Conc 33.8 g/dL (31-36); Mean Corpuscular Volume 88.1 fL (80-97); Mean Platelet Volume 7.5 fL (7.5-11.2); Nucleated Red Blood Cells % 0.1 /100 WBC (0.0-0.4); Platelet Count 154 10^3/uL (150-450); Red Cell Distribution Width 17.1 % (12-17); White Blood Count 7.9 10^3/uL (3.6-10.2)
[2023-07-01 21:35] LABS: Activated Partial Thrombo Time 38.3 seconds (26.0-38.0); INR 1.69 (0.83-1.13)
[2023-07-01 21:54] LABS: Calcium 8.3 mg/dL (8.6-10.3); Potassium 3.9 mmol/L (3.5-5.0); Total Bilirubin 0.6 mg/dL (0.2-1.0)
[2023-07-01 22:00] LABS: Albumin/Globulin Ratio 1.1 (1-3); C Reactive Protein 101.94 mg/L (<8.01); Creatinine, Serum 1.46 mg/dL (0.67-1.17); Globulin 2.8 g/dL (2-4); Total Protein 5.8 g/dL (6.4-8.9)
[2023-07-01] MEDS ORDERED: Lactated Ringers 1000 ml BAG 1,000 ML IV ONE (22:01)
[2023-07-01] MEDS ORDERED: Norepinephrine 16MCG/ML BAGD5W 4,000 MCG/250 ML BAG IV SCH (23:00)
[2023-07-01 23:48] LABS: Urine Appearance Clear; Urine Bilirubin Negative (Negative); Urine Blood Negative (Negative); Urine Color Yellow; Urine Glucose Negative (Negative); Urine Ketones Negative (Negative); Urine Nitrite Negative (Negative); Urine Protein Negative (Negative); Urine Specific Gravity 1.009 (1.002-1.030); Urine Urobilinogen Negative (Negative)
[2023-07-02] MEDS ORDERED: Clotrimazole 1% CREAM 45 GM TOPICAL SCH (00:30)
[2023-07-02 01:19] LABS: TSH Ultra Thyroid Stim Horm 0.07 mcIU/mL (0.34-5.60)
[2023-07-02 01:26] LABS: Free T4 1.26 ng/dL (0.61-1.12)
[2023-07-02] MEDS: Clotrimazole 1% CREAM 30 gm TOPICAL SCH ×3 (01:42→20:51)
[2023-07-02] MEDS ORDERED: Norepinephrine 16MCG/ML BAGD5W 4,000 MCG/250 ML BAG IV ONE (02:51)
[2023-07-02] MEDS ORDERED: Zosyn per Pharmacy NOTE FOLLOW UP SCH (03:00)
[2023-07-02] MEDS ORDERED: Vancomycin per Pharmacy 1 EA NOTE FOLLOW UP SCH (03:00)
[2023-07-02] MEDS ORDERED: Norepinephrine 16MCG/ML BAGD5W 4,000 MCG/250 ML BAG IV SCH ×2 (03:00)
[2023-07-02] MEDS: ZOSYN 3.375 GM Q8H per EXTENDED INFUSION IV SCH ×3 (04:12→19:43)
[2023-07-02 05:46] LABS: ABS Eosinophils 0.1 10^3/uL (0.0-0.5); ABS Monocytes 0.5 10^3/uL (0.0-1.1); ABS Neutrophils 3.5 10^3/uL (1.5-7.6); ABS Nucleated RBC 0.01 10^3/ul; Eosinophil % 2.2 %; Hematocrit 27.8 % (38-53); Hemoglobin 9.4 g/dL (13.2-16.3); Lymphocyte % 31.9 %; Mean Corpuscular Hemoglobin 29.8 pg (27-33); Mean Corpuscular Hgb Conc 33.7 g/dL (31-36); Mean Corpuscular Volume 88.4 fL (80-97); Nucleated Red Blood Cells % 0.1 /100 WBC (0.0-0.4); Platelet Count 139 10^3/uL (150-450); Red Blood Count 3.15 10^6/uL (4.06-5.63); Red Cell Distribution Width 16.8 % (12-17); White Blood Count 6.2 10^3/uL (3.6-10.2)
[2023-07-02 06:01] LABS: ALT 11 U/L (7-52); AST 15 U/L (13-39); Albumin 2.7 g/dL (3.2-5.2); Albumin/Globulin Ratio 0.9 (1-3); Alkaline Phosphatase 184 U/L (35-149); Anion Gap 7 mmol/L (2-16); Blood Urea Nitrogen 21 mg/dL (6-24); CO2 Carbon Dioxide 26 mmol/L (22-32); Calcium 7.6 mg/dL (8.6-10.3); Chloride 101 mmol/L (101-111); Creatinine, Serum 1.36 mg/dL (0.67-1.17); Globulin 2.9 g/dL (2-4); Glucose 212 mg/dL (70-100); Magnesium 1.9 mg/dL (1.9-2.7); Potassium 3.5 mmol/L (3.5-5.0); Sodium 134 mmol/L (135-145); Total Protein 5.6 g/dL (6.4-8.9); eGFR CKD-EPI 52.3 (>60)
[2023-07-02 06:41] LABS: % Iron Saturation 15 % (15-55); .Transferrin 145 mg/dL (203-362); Iron 30 ug/dL (50-212); Total Iron Binding Capacity 203 mcg/dL (250-450); Unsaturated Iron Binding 173 ug/dL
[2023-07-02] MEDS ORDERED: Potassium EFFERVES 25 meq TAB PO ONE (06:42)
[2023-07-02 07:15] LABS: Folate > 20.00 ng/mL (5.90-24.80)
[2023-07-02 07:16] LABS: Vitamin B12 634 pg/mL (180-914)
[2023-07-02] MEDS: Norepinephrine 16MCG/ML BAGD5W 4,000 MCG/250 ML BAG IV SCH (19:33)
[2023-07-02] MEDS ORDERED: Vancomycin 1,500 MG in NS 0.9% 250 ml 250 ML IVPB SCH (21:00)
[2023-07-03] MEDS: Norepinephrine 16MCG/ML BAGD5W 4,000 MCG/250 ML BAG IV SCH (00:53)
[2023-07-03] MEDS: ZOSYN 3.375 GM Q8H per EXTENDED INFUSION IV SCH ×3 (04:18→21:00)
[2023-07-03] MEDS ORDERED: Potassium EFFERVES 25 meq TAB PO ONE (05:23)
[2023-07-03 05:24] LABS: ABS Eosinophils 0.2 10^3/uL (0.0-0.5); ABS Lymphocytes 2.3 10^3/uL (1.0-4.8); ABS Monocytes 0.5 10^3/uL (0.0-1.1); ABS Neutrophils 3.5 10^3/uL (1.5-7.6); ABS Nucleated RBC 0.01 10^3/ul; Eosinophil % 2.4 %; Hematocrit 24.9 % (38-53); Hemoglobin 8.4 g/dL (13.2-16.3); Lymphocyte % 35.2 %; Mean Corpuscular Hemoglobin 29.7 pg (27-33); Mean Corpuscular Hgb Conc 33.8 g/dL (31-36); Mean Platelet Volume 7.6 fL (7.5-11.2); Nucleated Red Blood Cells % 0.1 /100 WBC (0.0-0.4); Platelet Count 139 10^3/uL (150-450); Red Blood Count 2.83 10^6/uL (4.06-5.63); Red Cell Distribution Width 17.3 % (12-17); White Blood Count 6.4 10^3/uL (3.6-10.2)
[2023-07-03 05:42] LABS: Calcium 7.4 mg/dL (8.6-10.3); Potassium 4.1 mmol/L (3.5-5.0)
[2023-07-03 05:48] LABS: Creatinine, Serum 1.41 mg/dL (0.67-1.17); eGFR CKD-EPI 50.1 (>60)
[2023-07-03] MEDS ORDERED: Influenza vaccine *QUAD* *2023-24* 0.5 ML SYRINGE IM ONE (09:00)
[2023-07-03] MEDS: Clotrimazole 1% CREAM 30 gm TOPICAL SCH ×2 (10:14→21:10)
[2023-07-03] MEDS ORDERED: Acetaminophen IV 1 GM/100ML 1,000 MG/100 ML BAG IV ONE (11:15)
[2023-07-04] MEDS: ZOSYN 3.375 GM Q8H per EXTENDED INFUSION IV SCH ×3 (03:32→21:51)
[2023-07-04 04:27] LABS: ABS Eosinophils 0.2 10^3/uL (0.0-0.5); ABS Lymphocytes 2.5 10^3/uL (1.0-4.8); ABS Monocytes 0.5 10^3/uL (0.0-1.1); ABS Neutrophils 2.7 10^3/uL (1.5-7.6); Hematocrit 25.4 % (38-53); Hemoglobin 8.5 g/dL (13.2-16.3); Lymphocyte % 41.8 %; Mean Corpuscular Hemoglobin 29.7 pg (27-33); Mean Corpuscular Hgb Conc 33.5 g/dL (31-36); Mean Corpuscular Volume 88.7 fL (80-97); Mean Platelet Volume 7.7 fL (7.5-11.2); Nucleated Red Blood Cells % 0.1 /100 WBC (0.0-0.4); Platelet Count 137 10^3/uL (150-450); Red Blood Count 2.86 10^6/uL (4.06-5.63); Red Cell Distribution Width 17.2 % (12-17)
[2023-07-04 04:41] LABS: Albumin 2.6 g/dL (3.2-5.2); Magnesium 2.2 mg/dL (1.9-2.7); Potassium 4.2 mmol/L (3.5-5.0); Total Bilirubin 0.7 mg/dL (0.2-1.0)
[2023-07-04 04:47] LABS: Creatinine, Serum 1.38 mg/dL (0.67-1.17); Globulin 2.6 g/dL (2-4); Total Protein 5.2 g/dL (6.4-8.9); eGFR CKD-EPI 51.4 (>60)
[2023-07-04] MEDS: Clotrimazole 1% CREAM 30 gm TOPICAL SCH ×2 (09:04→22:30)
[2023-07-04] MEDS ORDERED: Vancomycin Trough Check NOTE FOLLOW UP ONE (20:30)
[2023-07-05] MEDS: ZOSYN 3.375 GM Q8H per EXTENDED INFUSION IV SCH (04:07)
[2023-07-05 05:54] LABS: ABS Eosinophils 0.3 10^3/uL (0.0-0.5); ABS Lymphocytes 2.5 10^3/uL (1.0-4.8); ABS Monocytes 0.6 10^3/uL (0.0-1.1); ABS Neutrophils 2.9 10^3/uL (1.5-7.6); ABS Nucleated RBC 0.01 10^3/ul; Eosinophil % 4.3 %; Hematocrit 25.5 % (38-53); Hemoglobin 8.8 g/dL (13.2-16.3); Lymphocyte % 40.1 %; Mean Corpuscular Hemoglobin 30.4 pg (27-33); Mean Corpuscular Hgb Conc 34.4 g/dL (31-36); Mean Corpuscular Volume 88.3 fL (80-97); Nucleated Red Blood Cells % 0.2 /100 WBC (0.0-0.4); Platelet Count 138 10^3/uL (150-450); Red Blood Count 2.88 10^6/uL (4.06-5.63); Red Cell Distribution Width 17.3 % (12-17); White Blood Count 6.3 10^3/uL (3.6-10.2)
[2023-07-05 06:06] LABS: Calcium 8.3 mg/dL (8.6-10.3); Creatinine, Serum 1.34 mg/dL (0.67-1.17); Magnesium 2.3 mg/dL (1.9-2.7); Potassium 4.1 mmol/L (3.5-5.0); eGFR CKD-EPI 53.2 (>60)
[2023-07-05] MEDS ORDERED: Influenza vaccine *QUAD* *2023-24* 0.5 ML SYRINGE IM ONE (08:00)
[2023-07-05] MEDS ORDERED: cefTRIAXone 1 gm/50 mL D5W 1 GM/50 ML BAG IV SCH (09:15)
[2023-07-05] MEDS: Clotrimazole 1% CREAM 30 gm TOPICAL SCH ×2 (09:47→20:38)
[2023-07-05] MEDS: cefTRIAXone 1 gm/50 mL D5W 1 GM/50 ML BAG IV SCH (11:52)
[2023-07-06 06:05] LABS: ABS Eosinophils 0.2 10^3/uL (0.0-0.5); ABS Lymphocytes 1.7 10^3/uL (1.0-4.8); ABS Monocytes 0.4 10^3/uL (0.0-1.1); ABS Neutrophils 2.6 10^3/uL (1.5-7.6); ABS Nucleated RBC 0.01 10^3/ul; Eosinophil % 4.1 %; Hematocrit 27.2 % (38-53); Hemoglobin 9.2 g/dL (13.2-16.3); Lymphocyte % 34.7 %; Mean Corpuscular Hemoglobin 29.9 pg (27-33); Mean Corpuscular Hgb Conc 33.6 g/dL (31-36); Mean Corpuscular Volume 88.9 fL (80-97); Nucleated Red Blood Cells % 0.2 /100 WBC (0.0-0.4); Platelet Count 136 10^3/uL (150-450); Red Blood Count 3.06 10^6/uL (4.06-5.63); White Blood Count 4.9 10^3/uL (3.6-10.2)
[2023-07-06 06:19] LABS: Calcium 8.3 mg/dL (8.6-10.3); Creatinine, Serum 1.24 mg/dL (0.67-1.17); Magnesium 2.3 mg/dL (1.9-2.7); Potassium 4.1 mmol/L (3.5-5.0); eGFR CKD-EPI 58.4 (>60)
[2023-07-06 09:04] LABS: C Reactive Protein 21.12 mg/L (<8.01)
[2023-07-06] MEDS: Ammonium Lactate 12% 1 APPLIC TUBE TOPICAL SCH ×2 (11:21→20:14)
[2023-07-06] MEDS: Clotrimazole 1% CREAM 30 gm TOPICAL SCH (11:21)
[2023-07-06] MEDS: cefTRIAXone 1 gm/50 mL D5W 1 GM/50 ML BAG IV SCH (11:39)
[2023-07-07] MEDS: Clotrimazole 1% CREAM 30 gm TOPICAL SCH ×3 (01:51→22:27)
[2023-07-07 06:52] LABS: Hematocrit 26.6 % (38-53); Hemoglobin 8.9 g/dL (13.2-16.3); Mean Corpuscular Hemoglobin 29.7 pg (27-33); Mean Corpuscular Hgb Conc 33.4 g/dL (31-36); Mean Corpuscular Volume 88.8 fL (80-97); Mean Platelet Volume 8.1 fL (7.5-11.2); Platelet Count 133 10^3/uL (150-450); Red Blood Count 2.99 10^6/uL (4.06-5.63); Red Cell Distribution Width 17.1 % (12-17); White Blood Count 4.9 10^3/uL (3.6-10.2)
[2023-07-07 07:11] LABS: Calcium 8.1 mg/dL (8.6-10.3); Creatinine, Serum 1.11 mg/dL (0.67-1.17); Magnesium 2.2 mg/dL (1.9-2.7); Potassium 3.9 mmol/L (3.5-5.0); eGFR CKD-EPI 66.7 (>60)
[2023-07-07] MEDS: Ammonium Lactate 12% 1 APPLIC TUBE TOPICAL SCH ×2 (09:34→22:27)
[2023-07-07] MEDS: cefTRIAXone 1 gm/50 mL D5W 1 GM/50 ML BAG IV SCH (12:15)
[2023-07-07] MEDS ORDERED: Influenza vaccine *QUAD* *2023-24* 0.5 ML SYRINGE IM ONE (17:20)
[2023-07-07] MEDS ORDERED: NS 0.9% 250 ml 250 ML IV SCH (18:00)
[2023-07-08 06:53] LABS: Hematocrit 26.5 % (38-53); Mean Corpuscular Hgb Conc 33.8 g/dL (31-36); Mean Corpuscular Volume 88.8 fL (80-97); Mean Platelet Volume 8.3 fL (7.5-11.2); Platelet Count 134 10^3/uL (150-450); Red Blood Count 2.99 10^6/uL (4.06-5.63); Red Cell Distribution Width 17.5 % (12-17); White Blood Count 5.5 10^3/uL (3.6-10.2)
[2023-07-08 07:15] LABS: Calcium 8.2 mg/dL (8.6-10.3); Creatinine, Serum 0.96 mg/dL (0.67-1.17); Magnesium 2.1 mg/dL (1.9-2.7); Potassium 4.3 mmol/L (3.5-5.0); eGFR CKD-EPI 79.4 (>60)
[2023-07-08] MEDS: Clotrimazole 1% CREAM 30 gm TOPICAL SCH (09:41)
[2023-07-08] MEDS: Ammonium Lactate 12% 1 APPLIC TUBE TOPICAL SCH (09:41)
[2023-07-08 11:28] VITALS: BP 99/52
[2023-07-08 15:41] LABS: Rapid COVID-19 Molecular Undetected (Undetected)
== END 2023-07-08 13:45 | DRG 871 ==
LOC: ED 19:49 → EDHOLD 23:12 → SUATTDRO 23:12 → ICU 07-02 04:43 → MEDTELE 07-04 10:05
PROVIDERS: ADMIT Surgery Surgical Critical Care; ATTEND Internal Medicine